=== PATIENT | male | born 1950 | race Caucasian/White ===

== ENCOUNTER → 2021-04-24 | Outpatient (CLI) | payer BC ==
--- NOTE | 2021-04-25 02:07 | MR ---
EXAMINATION TYPE: MR shoulder RT wo con DATE OF EXAM: 04/24/2021 COMPARISON: None HISTORY: Right shoulder pain, prior injury. Multiplanar multiecho imaging of the right shoulder without contrast. Subscapularis tendon is intact. Biceps tendon is intact. There is small amount of fluid around the bi ceps tendon. The glenoid arabella appear intact. There is no evidence of a fracture. The supraspinatus tendon appears fairly normal. There is no retraction. There is minimal spurring at the AC joint. No significant subacromial impingement humeral head is intact. IMPRESSION: No evidence of rotator cuff tear. There is slight increased joint fluid consistent with some mild syn ovitis. No fracture.
== END | disposition home or self-care (01) ==
LOC: RADMRIMAIN 19:21
PROVIDERS: ATTEND Orthopaedic Surgery
DX: M65.811 Other synovitis and tenosynovitis, right shoulder (principal)